=== PATIENT | male | born 1990 | race African-American/Black ===

== ENCOUNTER 2017-05-13 10:43 | Emergency (ER) | payer OTHER ==
[2017-05-13] MEDS ORDERED: HYDROcodone/Acetaminophen 10/325 mg Tablet ONE (11:24)
[2017-05-13] MEDS ORDERED: AMOXicillin 250 MG CAP ONE (11:25)
[2017-05-13] MEDS ORDERED: Naproxen 500 MG TAB ONE (11:25)
== END 2017-05-13 11:30 | disposition home or self-care (01) ==
LOC: MADERS 10:43
DX: K04.7 Periapical abscess without sinus (principal); F17.210 Nicotine dependence, cigarettes, uncomplicated
CPT/HCPCS: 99282

== ENCOUNTER 2018-12-30 05:40 | Emergency (ER) | payer OTHER ==
[2018-12-30] MEDS ORDERED: Dexamethasone 4 MG TAB ONE (06:39)
[2018-12-30] MEDS ORDERED: Benzonatate 100 MG CAP ONE (06:39)
[2018-12-30] MEDS ORDERED: Azithromycin 250 MG TAB ONE (06:39)
--- NOTE | 2018-12-30 07:59 | RAD ---
RADIOGRAPH CHEST 2 VIEWS: HISTORY: A 28-year-old male with cough and chest pain. FINDINGS: There is no air space density, pulmonary edema, pleural effusion, pneumothorax, or cardiomegaly. IMPRESSION: No acute cardiopulmonary findings. jn [] POS: [facility]
== END 2018-12-30 07:00 | disposition home or self-care (01) ==
LOC: MADERS 05:40
DX: J18.9 Pneumonia, unspecified organism (principal); F17.210 Nicotine dependence, cigarettes, uncomplicated
CPT/HCPCS: 71046; J8540

== ENCOUNTER 2019-06-24 10:08 | Emergency (ER) | payer OTHER ==
[2019-06-24] MEDS ORDERED: predniSONE 20 MG TAB ONE ×2 (10:47→10:50)
== END 2019-06-24 10:53 | disposition home or self-care (01) ==
LOC: MADERS 10:08
DX: J06.9 Acute upper respiratory infection, unspecified (principal); F17.210 Nicotine dependence, cigarettes, uncomplicated
CPT/HCPCS: 99283; J7512

== ENCOUNTER 2019-12-05 08:29 | Emergency (ER) | payer OTHER | END 2019-12-05 09:20 | disposition home or self-care (01) | LOC: MADERS 08:29 | DX: K04.7 Periapical abscess without sinus (principal); F17.210 Nicotine dependence, cigarettes, uncomplicated; K02.9 Dental caries, unspecified | CPT/HCPCS: 99282 ==

== ENCOUNTER 2021-07-24 04:29 | Emergency (ER) | payer OTHER ==
[2021-07-24 04:56] LABS: Bilirubin Negative (Negative); Blood, Urine Small (Negative); Clarity Clear (Clear); Glucose, Urine (Dipstick) Negative (Negative); Ketone, Urine Negative (Negative); Leukocyte Negative (Negative); Nitrite Negative (Negative); Protein, Urine (Dipstick) Negative (Neg-Trace); Specific Gravity, Urine 1.032 (1.002-1.036); pH, Urine 5.5 (5.0-9.0)
[2021-07-24 05:04] LABS: Bacteria/HPF None Seen HPF (None Seen); Mucous/LPF 2+ LPF (<2+); Squamous Epithelial None Seen HPF (0-3); Transitional Epithelial 0-3 HPF (None Seen); WBC/HPF 0-3 HPF (0-3)
[2021-07-24] MEDS ORDERED: Ketorolac Tromethamine 30 MG/ML VIAL ONE ×2 (05:15→06:51)
[2021-07-24] MEDS ORDERED: Lactated Ringer's 1,000 ML ONE (05:15)
[2021-07-24 05:59] LABS: ALT (SGPT) 20 U/L (8-55); AST (SGOT) 14 U/L (5-34); Albumin 4.6 g/dL (3.5-5.0); Alkaline Phosphatase 70 U/L (40-110); Anion Gap 17 mmol/L (10-20); BUN (Urea Nitrogen) 12 mg/dL (8.9-20.6); Bilirubin, Total 0.4 mg/dL (0.2-1.2); Calc. Creatinine Clearance 0 mL/min (70-130); Calcium 9.3 mg/dL (7.8-10.44); Chloride 105 mmol/L (98-107); Glucose 121 mg/dL (70-105); Potassium 3.8 mmol/L (3.5-5.1); Sodium 140 mmol/L (136-145)
[2021-07-24 06:03] LABS: Carbon Dioxide 22 mmol/L (22-29); Globulin 2.9 g/dL (2.4-3.5); Protein, Total 7.5 g/dL (6.0-8.3)
[2021-07-24 06:14] LABS: Band 1 % (5-11); Hemoglobin 15.4 g/dL (14.0-18.0); Lymphocytes 12 % (21-51); MDiff Complete? YES; Mean Corpuscular HGB CONC 35.1 g/dL (32.0-36.0); Mean Corpuscular Hemoglobin 32.4 pg (27.0-31.0); Mean Corpuscular Volume 92.3 fL (78.0-98.0); Mean Platelet Volume 7.6 fL (7.4-10.4); Monocytes 4 % (0-10); Neutrophil 83 % (42-75); Platelet Count 297 thou/uL (130-400); RBC Distribution Width 11.6 % (11.5-14.5); RBC Morphology Normal; Red Blood Cell (RBC) Count 4.76 mill/uL (4.70-6.10); White Blood Cell (WBC) Count 27.6 thou/uL (4.8-10.8)
== END 2021-07-24 07:40 | disposition home or self-care (01) ==
LOC: MADERS 04:29
DX: R10.32 Left lower quadrant pain (principal); R31.29 Other microscopic hematuria; D72.829 Elevated white blood cell count, unspecified; F17.210 Nicotine dependence, cigarettes, uncomplicated
CPT/HCPCS: 74176; 80053; 81003; 81015; 83605; 83690; 85025; 87040; 87086; 96374; 96376; J1885; J7120

== ENCOUNTER 2023-08-19 23:03 | Emergency (ER) | payer OTHER ==
[2023-08-19] MEDS ORDERED: Ketorolac Tromethamine 10 MG TAB ONE (23:18)
[2023-08-19] MEDS ORDERED: Amoxicillin/Potassium Clav 875 MG TAB ONE (23:18)
== END 2023-08-19 23:33 | disposition home or self-care (01) ==
LOC: MADERS 23:03
DX: K02.9 Dental caries, unspecified (principal); F17.210 Nicotine dependence, cigarettes, uncomplicated
CPT/HCPCS: 99282